=== PATIENT | male | born 1990 | race Two or more races ===

== ENCOUNTER 2020-12-16 16:49 | Emergency (ER) | payer MEDICAID, OTHER ==
[~2020-12-16] VITALS: Ht 170.2 cm; Wt 136.1 kg
[2020-12-16] MEDS ORDERED: ACETAMINOPHEN 500 MG TAB PO ONE (19:30)
[2020-12-16] MEDS ORDERED: KETOROLAC TROMETH 60MG/2ML VIAL IM ONE (19:30)
[2020-12-16 20:15] VITALS: BP 144/92
== END 2020-12-16 20:11 | disposition home or self-care (01) ==
LOC: EDBD 16:49 → ER 16:49
DX: G44.209 Tension-type headache, unspecified, not intractable (principal); E78.5 Hyperlipidemia, unspecified; F41.9 Anxiety disorder, unspecified
CPT/HCPCS: 70450; 96372; 99284; J1885